=== PATIENT | male | born 2000 | race Caucasian/White ===

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

== ENCOUNTER 2022-09-03 11:28 | Inpatient (IN) | payer BC ==
--- NOTE | 2022-09-03 11:57 | ED ---
General Adult HPI - General Source: RN notes reviewed <Fiona Babb - Last Filed: 09/03/22 11:56> - General Source: patient, family, RN notes reviewed Mode of arrival: ambulatory Limitations: no limitations <Mason Aguirre - Last Filed: 09/03/22 17:06> - General Stated complaint: Mental Health Suicidal Time Seen by Provider: 09/03/22 11:56 - History of Present Illness Initial comments: 21-year-old male presents to the emergency department with suicidal ideation. Patient admits to plan. (Fiona Babb) Patient is a pleasant 21-year-old male presenting to the emergency department for mental health evaluation. Patient has chronic depression. Patient also has some chronic suicidal thoughts. Patient states thoughts of worsened recently that he treats increased stress associated with legal problems. Patient has thoughts of harming himself through car exhaust. Patient does have history of self-harm 1 year ago. No homicidal thoughts. No alcohol use. No street drug use other than marijuana. No new physical complaints. No hallucinations. Patient is on BuSpar through his primary care physician (Mason Aguirre) - Related Data Home Medications Medication Instructions Recorded Confirmed buPROPion SR [Wellbutrin SR] 100 mg PO DAILY 09/03/22 09/03/22 Allergies Allergy/AdvReac Type Severity Reaction Status Date / Time No Known Allergies Allergy Verified 09/03/22 15:17 Review of Systems ROS Other: All systems not noted in ROS Statement are negative. <Fiona Babb - Last Filed: 09/03/22 11:56> ROS Other: All systems not noted in ROS Statement are negative. Constitutional: Denies: fever Eyes: Denies: eye pain ENT: Denies: ear pain Respiratory: Denies: cough Cardiovascular: Denies: chest pain Endocrine: Denies: fatigue Gastrointestinal: Denies: abdominal pain Genitourinary: Denies: urgency Musculoskeletal: Denies: back pain Skin: Denies: rash Neurological: Denies: weakness Psychiatric: Reports: as per HPI, depression, suicidal thoughts <Mason Aguirre - Last Filed: 09/03/22 17:06> ROS Statement: Those systems with pertinent positive or pertinent negative responses have been documented in the HPI. Past Medical History Additional Past Medical History / Comment(s): left knee infection from a "thorn" History of Any Multi-Drug Resistant Organisms: None Reported Past Surgical History: No Surgical Hx Reported Additional Past Surgical History / Comment(s): IandD Past Psychological History: No Psychological Hx Reported Past Alcohol Use History: None Reported Past Drug Use History: None Reported <GreciagloFiona barton - Last Filed: 09/03/22 11:56> General Exam <GreciagloFiona barton - Last Filed: 09/03/22 11:56> Limitations: no limitations General appearance: alert, in no apparent distress Head exam: Present: atraumatic Eye exam: Present: normal appearance Neck exam: Present: normal inspection Respiratory exam: Present: normal lung sounds bilaterally Cardiovascular Exam: Present: regular rate, normal rhythm GI/Abdominal exam: Present: soft. Absent: tenderness Extremities exam: Present: normal inspection Neurological exam: Present: alert Psychiatric exam: Present: depressed Skin exam: Present: normal color <Mason Aguirre - Last Filed: 09/03/22 17:06> - General Exam Comments Initial Comments: Visual Physical Exam Vital signs reviewed General: Well-appearing, nontoxic, no acute distress. Head: Normocephalic, atraumatic Eyes: PERRLA, EOMI ENT: Airway patent Chest: Nonlabored breathing Skin: No visual rash, normal skin tone Neuro: Alert and oriented 3 Musculoskeletal: No gross abnormalities (Fiona Babb) Course Vital Signs 09/03/22 12:30 Temperature 97.9 F Pulse Rate 99 Respiratory 17 Rate Blood Pressure 126/84 O2 Sat by Pulse 99 Oximetry Medical Decision Making <Mason Aguirre - Last Filed: 09/03/22 17:06> - Medical Decision Making Was pt. sent in by a medical professional or institution (Dr. PA, CAMPAIGN MARKETING MANAGER, urgent care, hospital, or usp...) When possible be specific @ -No Did you speak to anyone other than the patient for history (EMS, parent, family, police, friend...)? What history was obtained from this source @ -Mother is present and helps confirm history including history of previous suicide attempt Did you review nursing and triage notes (agree or disagree)? Why? @ -I reviewed and agree with nursing and triage notes Were old charts reviewed (outside hosp., previous admission, EMS record, old EKG, old radiological studies, urgent care reports/EKG's, usp records)? Report findings @ -No old charts were reviewed Differential Diagnosis (chest pain, altered mental status, abdominal pain women, abdominal pain men, vaginal bleeding, weakness, fever, dyspnea, syncope, headache, dizziness, GI bleed, back pain, seizure, CVA, palpatations, mental health)? @ -not applicable EKG interpreted by me (3pts min.). @ -As above X-rays interpreted by me (1pt min.). @ -None done CT interpreted by me (1pt min.). @ -None done U/S interpreted by me (1pt. min.). @ -None done What testing was considered but not performed or refused? (CT, X-rays, U/S, labs)? Why? @ -None What meds were considered but not given or refused? Why? @ -None Did you discuss the management of the patient with other professionals (professionals i.e. , PA, CAMPAIGN MARKETING MANAGER, lab, RT, psych nurse, social professionals, warehouse attendant, teacher, chief clinical officer, medical case manager)? Give summary @ -Case was discussed with mental health nurse and patient will be admitted Was smoking cessation discussed for >3mins.? @ -No Was critical care preformed (if so, how long)? @ -No Were there social determinants of health that impacted care today? How? (Homelessness, low income, unemployed, alcoholism, drug addiction, transportation, low edu. Level, literacy, decrease access to med. care, senior living, rehab)? @ -No Was there de-escalation of care discussed even if they declined (Discuss DNR or withdrawal of care, Hospice)? DNR status @ -No What co-morbidities impacted this encounter? (DM, HTN, Smoking, COPD, CAD, Cancer, CVA, ARF, Chemo, Hep., AIDS, mental health diagnosis, sleep apnea, morbid obesity)? @ -None Was patient admitted / discharged? Hospital course, mention meds given and route, prescriptions, significant lab abnormalities, going to OR and other pertinent info. @ -Patient will be admitted for psychiatric care secondary to depression and suicidal thoughts Undiagnosed new problem with uncertain prognosis? @ -No Drug Therapy requiring intensive monitoring for toxicity (Heparin, Nitro, Insulin, Cardizem)? @ -No Were any procedures done? @ -No Diagnosis/symptom? @ -English, suicidal ideation Acute, or Chronic, or Acute on Chronic? @ -Acute Uncomplicated (without systemic symptoms) or Complicated (systemic symptoms)? @ -default Side effects of treatment? @ -No Exacerbation, Progression, or Severe Exacerbation? @ -No Poses a threat to life or bodily function? How? (Chest pain, [place], [place], pneumonia, PE, COPD, DKA, ARF, appy, cholecystitis, CVA, Diverticulitis, Homicidal, Suicidal, threat to staff... and all critical care pts) @ -No (Mason Aguirre) - Lab Data Lab Results 09/03/22 Range/Units 12:34 Coronavirus (PCR) Not Detected (Not Detectd) Disposition <Fiona Babb - Last Filed: 09/03/22 11:56> Is patient prescribed a controlled substance at d/c from ED?: No Time of Disposition: 17:06 <Mason Aguirre - Last Filed: 09/03/22 17:06> Clinical Impression: Depression, Suicidal ideation Disposition: TRANSFER TO PSYCH HOSP/UNIT Referrals: Vinita Coronado MD [Primary Care Provider] - 1-2 days
[2022-09-03] MEDS ORDERED: hydrOXYzine HCL 25 MG TAB PO PRN (21:13)
[2022-09-03] MEDS ORDERED: MAG HYDROX/AL HYDROX/SIMETH 30 ML CUP PO PRN (21:13)
[2022-09-03] MEDS ORDERED: ACETAMINOPHEN TAB 325 MG TAB PO PRN (21:13)
[2022-09-03] MEDS ORDERED: MAGNESIUM HYDROXIDE 2,400 MG/10 ML CUP PO PRN (21:13)
[2022-09-03] MEDS ORDERED: OLANZapine 5 MG TAB PO PRN (21:13)
[2022-09-03] MEDS ORDERED: OLANZapine 10 MG VIAL IM PRN (21:13)
[2022-09-03] MEDS ORDERED: IBUPROFEN 600 MG TAB PO PRN (21:13)
[2022-09-03] MEDS ORDERED: hydrOXYzine HCL 50 MG/ML 1 ML VIAL IM PRN (21:13)
[2022-09-03 22:32] LABS: Amphetamine Screen,Urine Not Detected (NotDetected); Benzodiazepines Screen,Urine Not Detected (NotDetected); Cocaine Screen,Urine Not Detected (NotDetected); Opiate Screen,Urine Not Detected (NotDetected); Phencyclidine Screen,Urine Not Detected (NotDetected); Tricyclic Antidepressant,Urine Not Detected (NotDetected); Urn Cannabinoid Scrn Detected (NotDetected)
[2022-09-03 22:33] LABS: Barbiturate Screen,Urine Not Detected (NotDetected); Methadone Screen, Urine Not Detected (NotDetected); Oxycodone Screen, Urine Not Detected (NotDetected)
[2022-09-04 06:53] LABS: Basophils % (A) 0 %; Eosinophils # (A) 0.5 k/uL (0-0.7); Eosinophils % (A) 6 %; HCT 47.8 % (39.0-53.0); HGB 15.5 gm/dL (13.0-17.5); Lymphocytes # (A) 2.6 k/uL (1.0-4.8); Lymphocytes % (A) 32 %; MCH 28.6 pg (25.0-35.0); MCHC 32.5 g/dL (31.0-37.0); MCV 88.1 fL (80.0-100.0); Mean Platelet Volume 8.7; Monocytes # (A) 0.4 k/uL (0-1.0); Monocytes % (A) 4 %; Neutrophils # (A) 4.4 k/uL (1.3-7.7); Neutrophils % (A) 55 %; Platelet Count 211 k/uL (150-450); RBC 5.43 m/uL (4.30-5.90); RDW 12.7 % (11.5-15.5)
[2022-09-04 06:58] LABS: ALT 12 U/L (4-49); AST 19 U/L (17-59); African American GFR (CKD) >90 (>60 ml/min/1.73 sqM); Albumin 4.5 g/dL (3.5-5.0); Alkaline Phosphatase 68 U/L (38-126); Anion Gap 8 mmol/L; Blood Urea Nitrogen 13 mg/dL (9-20); Calcium 9.5 mg/dL (8.4-10.2); Carbon Dioxide 24 mmol/L (22-30); Chloride 107 mmol/L (98-107); Glucose 100 mg/dL (74-99); Non-African American GFR(CKD) >90 (>60 ml/min/1.73 sqM); Potassium 4.7 mmol/L (3.5-5.1); Sodium 139 mmol/L (137-145); Total Bilirubin 0.8 mg/dL (0.2-1.3); Total Protein 7.4 g/dL (6.3-8.2)
[2022-09-04] MEDS: NICOTINE 14MG/24HR PATCH TRANSDERM SCH (08:26)
[2022-09-04] MEDS ORDERED: buPROPion SR 100 MG TABLET.ER PO SCH (09:00)
[2022-09-04] MEDS ORDERED: SERTRALINE 50 MG TAB PO STA (10:33)
[2022-09-04] MEDS ORDERED: ARIPiprazole 5 MG TAB PO STA (10:34)
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
[2022-09-04 15:40] LABS: Chol/HDL Ratio 2.06 Ratio; LDL Cholesterol,Calculated 43.3 mg/dL (0.0-131.0); VLDL Calculation 12.72 mg/dL (5.00-40.00)
--- NOTE | 2022-09-04 16:18 | P.MDCNMH ---
History of Present Illness H&P Date: 09/04/22 This is a very pleasant 21-year-old male who presented to the emergency department with increased depression and suicidal thoughts. Patient reports he follows with Dr. Coronado in the outpatient setting with a past medical history of depression and admits to nicotine dependence along with vaping and marijuana use. Patient denies other illicit or alcohol use. Patient was voluntarily admitted to the psych unit for psychiatric evaluation. Patient was on Wellbutrin per PCP in the outpatient setting and psychiatry making adjustments to medications including Zoloft and Abilify for his mood swings. Labs reviewed and within normal limits and drug screen was negative other than marijuana and COVID-19 was negative. Patient denies chest pain or shortness of breath and reports is tolerating diet with no reports of nausea or vomiting. Patient reports he feels a little bit lethargic and overwhelmed with life. Patient encouraged to continue group therapy meetings and medication compliance with psychiatrist. Patient is extremely pleasant on exam. Review Of Systems: Constitutional: No fever, no chills, no night sweats. No weight change. No weakness, fatigue or lethargy. Reports increased daytime sleepiness. EENT: No headache. No blurred vision or double vision, no loss of vision. No loss of Hearing, no ringing in the ears, no dizziness. No nasal drainage or congestion. No epistaxis. No sore throat. Lungs: No shortness of breath, cough, no sputum production. No wheezing. Cardiovascular: No chest pain, no lower extremity edema. No palpitations. No paroxysmal nocturnal dyspnea. No orthopnea. No lightheadedness or dizziness. No syncopal episodes. Abdominal: No abdominal pain. No nausea, vomiting. No diarrhea. No constipation. No bloody or tarry stools.. No loss of appetite. Genitourinary: No dysuria, increased frequency, urgency. No urinary retention. Musculoskeletal: No myalgias. No muscle weakness, no gait dysfunction, no frequent falls. No back pain. No neck pain. Integumentary: No wounds, no lesions. No rash or pruritus. No unusual bruising. No change in hair or nails. Neurologic: No aphasia. No facial droop. No change in mentation. No head injury. No headache. No paralysis. No paresthesia. Psychiatric: Reports continued and ongoing depression that has been getting worse. Reports anxiety. Reports mood swings. Endocrine: No abnormal blood sugars. No weight change. No excessive sweating or thirst. No cold intolerance. PHYSICAL EXAMINATION: GENERAL: The patient is alert and oriented x4, thin built, well-nourished HEENT: Pupils are round and equally reacting to light. EOMI. no scleral icterus. No conjunctival pallor. Normocephalic, atraumatic. No pharyngeal erythema. No thyromegaly. CARDIOVASCULAR: S1 and S2 muffled PULMONARY: Breath sounds are clear to auscultation with no wheezing or rhonchi noted. ABDOMEN: soft. Thin Nontender on exam. non-distended, normoactive bowel sounds. No palpable organomegaly. MUSCULOSKELETAL: No joint swelling or deformity. EXTREMITIES: No cyanosis, clubbing, or pedal edema. NEUROLOGICAL: Gross neurological examination did not reveal any focal deficits. SKIN: No rashes. Assessment: Depression with suicidal ideation Continued ongoing nicotine dependence THC use Vaping Full code Plan: Recommend to continue with current medications and management per psychiatric services. Medications being added per psychiatry as patient was taking Wellbutrin and adjustments being made Patient encouraged to attend group therapy sessions along with compliance to medications and working with social work/case management for resources in the outpatient setting Would recommend follow-up with Dr. Coronado in the office once discharged from psychiatry Encouraged tobacco cessation Strongly recommend counseling and therapy in the outpatient setting Thank you kindly for this consultation. The impression and plan of care has been dictated by Jackelin Neumann, nurse practitioner as directed. Dr. Jose Manuel MD I have performed a history and examination and MDM of this patient, discussed the same with the dictator, and agree with the dictator's assessment and plan as written ,documented as a scribe. Based on total visit time, I have performed more than 50% of the visit. Any additional findings or plans will be noted. Past Medical History Past Medical History: No Reported History Additional Past Medical History / Comment(s): left knee infection from a "thorn" History of Any Multi-Drug Resistant Organisms: None Reported Past Surgical History: No Surgical Hx Reported Additional Past Surgical History / Comment(s): IandD Past Anesthesia/Blood Transfusion Reactions: No Reported Reaction Past Psychological History: Depression Smoking Status: Current every day smoker, Vaper Past Alcohol Use History: None Reported Past Drug Use History: Marijuana - Past Family History Mother Family Medical History: No Reported History Medications and Allergies Home Medications Medication Instructions Recorded Confirmed Type buPROPion SR [Wellbutrin SR] 100 mg PO DAILY 09/03/22 09/03/22 History Allergies Allergy/AdvReac Type Severity Reaction Status Date / Time No Known Allergies Allergy Verified 09/03/22 15:17 Physical Exam Vitals: Vital Signs Temp Pulse Pulse Resp BP BP Pulse Ox 09/04/22 06:23 97.5 F L 51 L 16 129/85 09/03/22 21:50 98 F 101 H 18 141/93 100 09/03/22 12:30 97.9 F 99 17 126/84 99 Intake and Output 09/03/22 09/04/22 09/04/22 22:59 06:59 14:59 Other: Weight 60.98 kg Cranial Nerve Examination - Cranial Nerves Cranial Nerve I- Olfactory: Intact Cranial Nerve II- Optic: Intact Cranial Nerve III- Oculomotor: Intact Cranial Nerve IV- Trochlear: Intact Cranial Nerve V- Trigeminal: Intact Cranial Nerve - Abducens: Intact Cranial Nerve VII- Facial: Intact Cranial Nerve VIII- Auditory: Intact Cranial Nerve IX- Glossopharyngeal: Intact Cranial Nerve X- Vagus: Intact Cranial Nerve XI- Accessory: Intact Cranial Nerve XII- Hypoglossal: Intact Results CBC & Chem 7: 09/04/22 06:16 09/04/22 06:16 Labs: Abnormal Lab Results - Last 24 Hours (Table) 09/03/22 09/04/22 Range/Units 12:37 06:16 Glucose 100 H (74-99) mg/dL U Marijuana (THC) Screen Detected H (NotDetected) Assessment and Plan Time with Patient: Less than 30
[2022-09-05] MEDS: SERTRALINE 50 MG TAB PO SCH (09:00)
[2022-09-05] MEDS: ARIPiprazole 10 MG TAB PO SCH (09:00)
[2022-09-05] MEDS: NICOTINE 14MG/24HR PATCH TRANSDERM SCH (09:01)
--- NOTE | 2022-09-05 10:01 | P.PN ---
Progress Note - Text Progress Note Date: 09/05/22 Interval History: Patient was seen attending group and was directable and agreeable to speak with proposal manager writer in the office. And family, the patient is reporting that he is feeling better. He does report that he experienced some nausea from the medication however is tolerating the medication better today. He reports an improvement in his sleep and his appetite. He is currently denying any suicidal or homicidal ideation, intention, and/or plan. He reports no auditory or visual hallucinations. He denies any paranoia or other delusions. He reports that he is future oriented with a strong desire to gain custody of his children from his girlfriend. He does report that his significant support from his girlfriend and from his grandparents. Mental Status Exam: General Appearance: Patient appears to be stated age is alert, directable, and cooperative. Improved hygiene and grooming today. Behavior: Patient is calmly seated without any agitated behavior. Speech: Patient's speech is fluent and nonpressured. Mood/Affect: Mood is improving mildly, affect is congruent and constricted. Suicidality/Homicidality: Patient denies having any suicidal or homicidal ideation intent or plan. Perceptions: Patient denies any visual hallucinations and denies any auditory mcghee llucinations Though content/process: There is no evidence of any delusional thought content and thought process is linear and goal-directed. Memory and concentration: AOX3, grossly intact for the purposes of this session Judgment and insight: Improving mildly Vital Signs Temp 98.4 F 09/05/22 06:12 Pulse 97 09/05/22 06:12 Resp 16 09/05/22 06:12 BP 123/68 09/05/22 06:12 Pulse Ox 100 09/03/22 21:50 FiO2 Laboratory Results - Last 24 Hours 09/04/22 09/04/22 06:16 06:[address] Glu mg/dL 108 Hemoglobin A1c 5.4 Triglycerides 63.60 Cholesterol 109.00 LDL Cholesterol, Calc 43.3 VLDL Cholesterol, Calc 12.72 HDL Cholesterol 53.00 Cholesterol/HDL Ratio 2.06 Assessment Bipolar 2 disorder, depressive episode Cannabis use disorder Nicotine dependence Rule out PTSD Plan: -Patient continues to meet criteria for inpatient psychiatric admission for symptom stabilization and safety. Patient has signed adult voluntary form and medication consent and was placed in patient's chart. -Medications: Abilify 10 mg by mouth daily for mood stabilization/augmentation Zoloft 50 mg by mouth daily for depression/anxiety/PTSD -When necessary Zyprexa and Vistaril for agitation/aggression. -NRT - nicotine patch -SW on board for discharge planning. Encouraged the patient to participate in milieu.
[2022-09-06 06:44] VITALS: BP 130/75; PULSE 87; RESP 18; TEMP 97.5
[2022-09-06] MEDS: SERTRALINE 50 MG TAB PO SCH (08:33)
[2022-09-06] MEDS: NICOTINE 14MG/24HR PATCH TRANSDERM SCH (08:33)
[2022-09-06] MEDS: ARIPiprazole 10 MG TAB PO SCH (08:33)
[2022-09-06] MEDS ORDERED: LORazepam 1 MG TAB PO STA (09:51)
[2022-09-06] MEDS ORDERED: LORazepam 1 MG TAB PO PRN (09:52)
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
[2022-09-06] MEDS ORDERED: MAGNESIUM HYDROXIDE 2,400 MG/30 ML CUP PO PRN (15:44)
== END 2022-09-06 16:05 | DRG 885 ==
LOC: EC 11:28 → 3MHU 21:09
PROVIDERS: ADMIT Psychiatry & Neurology Psychiatry; ATTEND Psychiatry & Neurology Psychiatry
DX: F31.81 Bipolar II disorder (principal); R45.851 Suicidal ideations; F12.10 Cannabis abuse, uncomplicated; F43.10 Post-traumatic stress disorder, unspecified; Z65.3 Problems related to other legal circumstances; Z63.72 Alcoholism and drug addiction in family; Z79.899 Other long term (current) drug therapy; Z91.52 Personal history of nonsuicidal self-harm; Z66 Do not resuscitate; Z20.822 Contact with and (suspected) exposure to COVID-19; Z71.41 Alcohol abuse counseling and surveillance of alcoholic; Z71.6 Tobacco abuse counseling
CPT/HCPCS: 80053; 80061; 80306; 82075; 83036; 84443; 85025; 87635; 99285